=== PATIENT | female | born 1995 | race Caucasian/White ===

== ENCOUNTER 2017-09-23 01:42 | Emergency (ER) | payer OTHER, MEDICAID ==
[2017-09-23 02:06] LABS: URINE BLOOD (Dip) POC 2+ (NEGATIVE); URINE GLUCOSE (Dip) POC Negative (NEGATIVE); URINE KETONES (Dip) POC Negative (NEGATIVE); URINE LEUKOCYTE EST (Dip) POC 1+ (NEGATIVE); URINE NITRITE (Dip) POC Negative (NEGATIVE); URINE TOTAL PROTEIN POC Negative (NEGATIVE)
[2017-09-23] MEDS: SOD CHLORIDE 0.9% 500 ML IV (02:16)
[2017-09-23] MEDS: ONDANSETRON 4 MG INJ IV (02:16)
[2017-09-23] MEDS: morphine 4 MG/ML VIAL IV (02:17)
[2017-09-23 02:19] LABS: ADD MAN DIFF? NO
[2017-09-23 02:44] LABS: ALANINE AMINOTRANSFERASE 72 IU/L (13-69); ALBUMIN 4.2 g/dl (3.3-4.9); ALBUMIN/GLOBULIN RATIO 1.31; ALKALINE PHOSPHATASE 99 IU/L (42-121); ANION GAP 13 (8-16); ASPARTATE AMINO TRANSFERASE 40 IU/L (15-46); BILIRUBIN,INDIRECT 0.2 mg/dl (0-1.1); BILIRUBIN,TOTAL 0.2 mg/dl (0.2-1.3); BLOOD UREA NITROGEN 13 mg/dl (7-20); CALCIUM 9.1 mg/dl (8.4-10.2); CARBON DIOXIDE 27 mmol/L (21-31); CHLORIDE 107 mmol/L (97-110); CREATININE 0.78 mg/dl (0.44-1.00); GLUCOSE 98 mg/dl (70-220); LIPASE 137 U/L (23-300); POTASSIUM 4.2 mmol/L (3.5-5.1); SODIUM 143 mmol/L (135-144); TOTAL PROTEIN 7.4 g/dl (6.1-8.1)
[2017-09-23 02:51] LABS: WHITE BLOOD COUNT 8.8 10^3/ul (4.8-10.8)
[2017-09-23 02:51] LABS: BASOPHIL # 0.1 10^3/ul (0.0-0.1); BASOPHILS % 0.6 % (0.0-2.0); EOSINOPHILS # 0.4 10^3/ul (0.0-0.5); HEMATOCRIT 38.3 % (37.0-47.0); HEMOGLOBIN 12.1 g/dl (12.0-16.0); LYMPHOCYTES # 2.6 10^3/ul (0.8-2.9); LYMPHOCYTES % 29.6 % (15.0-51.0); MEAN CORPUSCULAR HEMOGLOBIN 27.9 pg (29.0-33.0); MEAN CORPUSCULAR HGB CONC 31.6 g/dl (32.0-37.0); MEAN CORPUSCULAR VOLUME 88.5 fl (82.0-101.0); MEAN PLATELET VOLUME 9.5 fl (7.4-10.4); MONOCYTE # 0.6 10^3/ul (0.3-0.9); NEUTROPHIL # 5.2 10^3/ul (1.6-7.5); NEUTROPHILS % 58.6 % (39.0-77.0); PLATELET COUNT 290 10^3/UL (140-415); RED BLOOD COUNT 4.33 10^6/ul (4.20-5.40); RED CELL DISTRIBUTION WIDTH 14.6 % (11.5-14.5)
[2017-09-23 03:07] LABS: ADD UMIC YES; UR ASCORBIC ACID 20 mg/dL (NEGATIVE); UR BACTERIA FEW /HPF (NONE SEEN); UR BILIRUBIN (Dip) NEGATIVE (NEGATIVE); UR BLOOD (Dip) 3+ mg/dL (NEGATIVE); UR CLARITY CLEAR (CLEAR); UR COLOR YELLOW (YELLOW); UR GLUCOSE (Dip) NEGATIVE (NEGATIVE); UR KETONES (Dip) NEGATIVE (NEGATIVE); UR LEUKOCYTE ESTERASE (Dip) 3+ Leu/ul (NEGATIVE); UR NITRITE (Dip) NEGATIVE (NEGATIVE); UR RBC 1 /HPF (0-5); UR SPECIFIC GRAVITY (Dip) 1.015 (1.003-1.030); UR SQUAMOUS EPITHELIAL CELL FEW /HPF (FEW); UR TOTAL PROTEIN (Dip) NEGATIVE (NEGATIVE); UR UROBILINOGEN (Dip) NEGATIVE (NEGATIVE); UR WBC 12 /HPF (0-5)
== END 2017-09-23 04:45 | disposition home or self-care (01) ==
LOC: E/R 01:42
DX: R10.11 Right upper quadrant pain (principal); R11.0 Nausea
CPT/HCPCS: 36415; 74176; 80053; 81001; 81003; 81025; 83690; 85025; 96374; 96375; 99285-25

== ENCOUNTER 2017-11-14 19:16 | Emergency (ER) | payer OTHER ==
[2017-11-14] MEDS: SOD CHLORIDE 0.9% 1,000 ML IV (21:03)
[2017-11-14] MEDS: KETOROLAC 15 MG INJ IV (21:03)
[2017-11-14] MEDS: ACETAMINOPHEN 325 MG TAB PO (21:03)
[2017-11-14 21:05] LABS: ADD MAN DIFF? NO
[2017-11-14 21:06] LABS: BASOPHILS % 0.2 % (0.0-2.0); HEMATOCRIT 38.7 % (37.0-47.0); HEMOGLOBIN 12.8 g/dl (12.0-16.0); LYMPHOCYTES # 1.6 10^3/ul (0.8-2.9); LYMPHOCYTES % 9.3 % (15.0-51.0); MEAN CORPUSCULAR HEMOGLOBIN 28.7 pg (29.0-33.0); MEAN CORPUSCULAR HGB CONC 33.1 g/dl (32.0-37.0); MEAN CORPUSCULAR VOLUME 86.8 fl (82.0-101.0); MEAN PLATELET VOLUME 9.4 fl (7.4-10.4); MONOCYTE # 1.2 10^3/ul (0.3-0.9); MONOCYTES % 7.1 % (0.0-11.0); NEUTROPHIL # 13.8 10^3/ul (1.6-7.5); NEUTROPHILS % 82.7 % (39.0-77.0); PLATELET COUNT 276 10^3/UL (140-415); RED BLOOD COUNT 4.46 10^6/ul (4.20-5.40)
[2017-11-14 21:06] LABS: WHITE BLOOD COUNT 16.7 10^3/ul (4.8-10.8)
[2017-11-14 21:29] LABS: ALANINE AMINOTRANSFERASE 58 IU/L (13-69); ALBUMIN 4.3 g/dl (3.3-4.9); ALBUMIN/GLOBULIN RATIO 1.22; ALKALINE PHOSPHATASE 109 IU/L (42-121); ANION GAP 20 (8-16); ASPARTATE AMINO TRANSFERASE 32 IU/L (15-46); BILIRUBIN,INDIRECT 0.5 mg/dl (0-1.1); BILIRUBIN,TOTAL 0.5 mg/dl (0.2-1.3); BLOOD UREA NITROGEN 11 mg/dl (7-20); CALCIUM 9.5 mg/dl (8.4-10.2); CARBON DIOXIDE 23 mmol/L (21-31); CHLORIDE 103 mmol/L (97-110); GLUCOSE 104 mg/dl (70-220); POTASSIUM 3.5 mmol/L (3.5-5.1); SODIUM 142 mmol/L (135-144); TOTAL PROTEIN 7.8 g/dl (6.1-8.1)
[2017-11-14 21:30] LABS: ADD UMIC YES; UR ASCORBIC ACID NEGATIVE (NEGATIVE); UR BACTERIA FEW /HPF (NONE SEEN); UR BILIRUBIN (Dip) NEGATIVE (NEGATIVE); UR BLOOD (Dip) NEGATIVE (NEGATIVE); UR CLARITY SLIGHTLY CLOUDY (CLEAR); UR COLOR YELLOW (YELLOW); UR GLUCOSE (Dip) NEGATIVE (NEGATIVE); UR KETONES (Dip) 1+ mg/dL (NEGATIVE); UR LEUKOCYTE ESTERASE (Dip) TRACE Leu/ul (NEGATIVE); UR NITRITE (Dip) NEGATIVE (NEGATIVE); UR RBC 1 /HPF (0-5); UR SPECIFIC GRAVITY (Dip) 1.016 (1.003-1.030); UR SQUAMOUS EPITHELIAL CELL FEW /HPF (FEW); UR TOTAL PROTEIN (Dip) 1+ mg/dl (NEGATIVE); UR UROBILINOGEN (Dip) 1+ mg/dL (NEGATIVE); UR WBC 7 /HPF (0-5)
[2017-11-14] MEDS: HYDROCODONE/APAP (5/325) TAB PO (22:17)
== END 2017-11-14 22:35 | disposition home or self-care (01) ==
LOC: FTE 19:16
DX: J02.0 Streptococcal pharyngitis (principal)
CPT/HCPCS: 36415; 80053; 81001; 81025; 85025; 87400; 87880; 96374; 99284-25

== ENCOUNTER 2017-12-08 05:55 | Emergency (ER) | payer OTHER ==
[2017-12-08 06:50] LABS: ADD MAN DIFF? NO
[2017-12-08 06:51] LABS: WHITE BLOOD COUNT 6.6 10^3/ul (4.8-10.8)
[2017-12-08 06:51] LABS: BASOPHILS % 0.6 % (0.0-2.0); EOSINOPHILS # 0.3 10^3/ul (0.0-0.5); EOSINOPHILS % 3.8 % (0.0-7.0); HEMATOCRIT 37.4 % (37.0-47.0); HEMOGLOBIN 12.1 g/dl (12.0-16.0); LYMPHOCYTES # 2.2 10^3/ul (0.8-2.9); LYMPHOCYTES % 33.6 % (15.0-51.0); MEAN CORPUSCULAR HEMOGLOBIN 28.8 pg (29.0-33.0); MEAN CORPUSCULAR HGB CONC 32.4 g/dl (32.0-37.0); MEAN PLATELET VOLUME 9.6 fl (7.4-10.4); MONOCYTE # 0.4 10^3/ul (0.3-0.9); MONOCYTES % 5.9 % (0.0-11.0); NEUTROPHIL # 3.7 10^3/ul (1.6-7.5); NEUTROPHILS % 55.8 % (39.0-77.0); PLATELET COUNT 327 10^3/UL (140-415); RED CELL DISTRIBUTION WIDTH 13.6 % (11.5-14.5)
[2017-12-08] MEDS: ONDANSETRON 4 MG INJ IV (06:53)
[2017-12-08] MEDS: SOD CHLORIDE 0.9% 1,000 ML IV (06:53)
[2017-12-08] MEDS: morphine 4 MG/ML VIAL IV (06:53)
[2017-12-08 06:58] LABS: ADD UMIC NO; UR ASCORBIC ACID NEGATIVE (NEGATIVE); UR BILIRUBIN (Dip) NEGATIVE (NEGATIVE); UR BLOOD (Dip) NEGATIVE (NEGATIVE); UR CLARITY SLIGHTLY CLOUDY (CLEAR); UR COLOR YELLOW (YELLOW); UR GLUCOSE (Dip) NEGATIVE (NEGATIVE); UR KETONES (Dip) NEGATIVE (NEGATIVE); UR LEUKOCYTE ESTERASE (Dip) NEGATIVE Leu/ul (NEGATIVE); UR NITRITE (Dip) NEGATIVE (NEGATIVE); UR RBC 1 /HPF (0-5); UR SPECIFIC GRAVITY (Dip) 1.021 (1.003-1.030); UR SQUAMOUS EPITHELIAL CELL MODERATE /HPF (FEW); UR TOTAL PROTEIN (Dip) NEGATIVE (NEGATIVE); UR UROBILINOGEN (Dip) 1+ mg/dL (NEGATIVE); UR WBC 8 /HPF (0-5)
[2017-12-08 07:33] LABS: ALBUMIN 4.4 g/dl (3.3-4.9); ALBUMIN/GLOBULIN RATIO 1.37; ALKALINE PHOSPHATASE 83 IU/L (42-121); ANION GAP 13 (8-16); ASPARTATE AMINO TRANSFERASE 28 IU/L (15-46); BILIRUBIN,INDIRECT 0.1 mg/dl (0-1.1); BILIRUBIN,TOTAL 0.1 mg/dl (0.2-1.3); BLOOD UREA NITROGEN 19 mg/dl (7-20); CALCIUM 9.6 mg/dl (8.4-10.2); CARBON DIOXIDE 26 mmol/L (21-31); CHLORIDE 107 mmol/L (97-110); CREATININE 0.76 mg/dl (0.44-1.00); GLUCOSE 100 mg/dl (70-220); SODIUM 142 mmol/L (135-144); TOTAL PROTEIN 7.6 g/dl (6.1-8.1)
[2017-12-08 07:58] LABS: ALANINE AMINOTRANSFERASE 41 IU/L (13-69)
[2017-12-08 09:01] LABS: PT RATIO 0.9
[2017-12-08 09:02] LABS: PARTIAL THROMBOPLASTIN TIME 26.3 Sec (25.0-35.0)
[2017-12-08] MEDS: KETOROLAC 30 MG INJ IV (09:32)
[2017-12-08 09:34] LABS: INR 0.88
== END 2017-12-08 10:04 | disposition home or self-care (01) ==
LOC: E/R 05:55
DX: K80.80 Other cholelithiasis without obstruction (principal)
CPT/HCPCS: 76705; 80053; 81001; 81003; 81025; 85025; 85610; 85730; 96374; 96375; 99285-25

== ENCOUNTER 2018-10-14 18:04 | Emergency (ER) | payer MEDICAID, OTHER ==
[2018-10-14] MEDS: IBUPROFEN 600 MG TAB PO (19:56)
[2018-10-14] MEDS: LIDOCAINE 1% (MDV) 20 ML INJ SC (20:01)
== END 2018-10-14 21:40 | disposition home or self-care (01) ==
LOC: FTE 18:04
DX: N75.1 Abscess of Bartholin's gland (principal)
CPT/HCPCS: 56420; 99282-25